=== PATIENT | male | born 1975 | race Caucasian/White ===

== ENCOUNTER 2016-08-17 17:14 | Emergency (ER) | payer BC ==
[2016-08-17] MEDS ORDERED: ACETAMINOPHEN 325 MG/TAB TABLET PO ONE (18:11)
--- NOTE | 2016-08-17 18:15 | EDPRACDOC ---
- General Information Chief Complaint: Flu-Like Symptoms Stated Complaint: FEVER SORE THROAT Time Seen by Provider: 08/17/16 18:05 Information Source: Patient Mode of Arrival: Car Home Medications: Home Medications Azithromycin 250 mg PO DAILY #6 tablet 08/17/16 Benzonatate [Tessalon Perle] 100 mg PO TID PRN #20 capsule 08/17/16 Oseltamivir Phosphate [Tamiflu] 75 mg PO DAILY 08/17/16 Allergies/Adverse Reactions: Allergies Allergy/AdvReac Type Severity Reaction Status Date / Time No Known Allergies Allergy Verified 03/23/16 20:39 - History of Present Illness Onset: 4 DAYS HPI: Pt dx with flu 4 days ago, taking tamiflu has cont to get worse. C/o SOB, productive cough (green), chest pain when coughing, sweats, gen weakness, body aches, sore throat, nasal congestion, facial pressure and pain, [place], nausea. Hx of recurrent pneumonia. Denies vomiting, changes in urine or BM. Med hx = none. Treated Infection: None (flu, tamiflu) Improves With: Reports: Nothing Symptoms: Reports: Cough, Nasal Symptoms, SOB, Sore Throat, Headache, Myalgia, Nausea, Weakness ED Past Medical History - History Reviewed Yes Nurses notes reviewed and agree except as marked - Patient Medical History Cardiac History: Reports: Hypertension (DOES NOT TAKE MEDS FOR THIS) GI/ History: Reports: Kidney Stones (NOW AND IN 2013) Psychological History: Denies: Depression - Family Medical History Reports: Hypertension (FATHER), Cardiac Disorders (PT FATHER) - Social Medical History Smoking Status: Never smoker EDM Review of Systems - Review of Systems ROS Negative Except as Marked: Yes All systems reviewed and were negative except as marked Throat: Pain Nose: Congestion Respiratory: Cough, Shortness of Breath, Sputum Gastrointestinal: Nausea Neurological: Headache, Weakness - Physical Exam Constitutional: Alert Oriented to: Time, Person, Place Last recorded Vital Signs: Last Vital Signs Temp 101.1 F H 08/17/16 17:16 Pulse 118 08/17/16 17:16 Resp 20 08/17/16 17:16 BP 144/65 08/17/16 17:16 Pulse Ox 95 08/17/16 17:16 Oxygen Pulse Oxygen Saturation 95 O2 Device Room Air Oxygen Flow Rate Fraction of Inspired Oxygen ( FIO2) - HEENT Head: Normal Eye Exam: negative: Conjunctival Injection, Scleral Icterus Oropharynx: Red Tympanic Membrane: Normal ENT EAC: Normal TMJ: Normal Nose: Congestion, Discharge (green) Neck: Normal - Respiratory/Cardiovascular Respiratory: Diminished (mild, left side) Cardiovascular: Normal - GI Auscultation: Normal Tenderness: Non tender - Musculoskeletal Back: Normal Extremities: Normal - Integumentary Skin: Normal - Neurologic Mood Description: Normal Thought: Coherent Perception: Normal - Diagnostic Imaging Chest Image interpreted by: Radiologist EXAM: CHEST 2 VIEW COMPARISON: December 04, 2008 FINDINGS: There is subtle infiltrate in the right base. Lungs elsewhere clear. Heart size and pulmonary vascularity are normal. No adenopathy. No bone lesions. IMPRESSION: Subtle infiltrate right base. Lungs elsewhere clear. Followup PA and lateral chest radiographs recommended in 3-4 weeks following trial of antibiotic therapy to ensure resolution and exclude underlying malignancy. Electronically Signed By: Aneesh Cedillo III, M.D. On: 08/17/2016 19:10 Decision Time to Discharge: 19:23 - Departure Disposition: Home Condition: Stable Final Diagnosis: Pneumonia Qualifiers: Pneumonia type: due to unspecified organism Laterality: right Lung location: unspecified part of lung Qualified Code(s): J18.9 - Pneumonia, unspecified organism Instructions: Bacterial Pneumonia (ED) Education/Counseling Given To: Patient Education/Counseling Given Regarding: Diagnosis, Treatment, Prognosis, Follow Up Referrals: None,No Provider [Primary Care Provider] - One Week Prescriptions: New Azithromycin 250 mg PO DAILY #6 tablet Benzonatate [Tessalon Perle] 100 mg PO TID PRN #20 capsule PRN Reason: Pain No Action Oseltamivir Phosphate [Tamiflu] 75 mg PO DAILY Additional Instructions: Follow up with primary care. Return to ED for any new or worsening symptoms.
[2016-08-17 18:22] VITALS: BP 165/75; PULSE 102; TEMP 102.4
--- NOTE | 2016-08-17 19:13 | DIRPT ---
CLINICAL DATA: Shortness of breath and cough for 5 days EXAM: CHEST 2 VIEW COMPARISON: December 04, 2008 FINDINGS: There is subtle infiltrate in the right base. Lungs elsewhere clear. Heart size and pulmonary vascularity are normal. No adenopathy. No bone lesions. IMPRESSION: Subtle infiltrate right base. Lungs elsewhere clear. Followup PA and lateral chest radiographs recommended in 3-4 weeks following trial of antibiotic therapy to ensure resolution and exclude underlying malignancy. Electronically Signed By: Aneesh Cedillo III, M.D. On: 08/17/2016 19:10
[2016-08-17] MEDS ORDERED: IBUPROFEN 800 MG TAB PO ONE (19:26)
== END 2016-08-17 19:45 | disposition home or self-care (01) ==
LOC: ED 17:14
DX: J18.9 Pneumonia, unspecified organism (principal)
CPT/HCPCS: 71020; 99282; J3490